=== PATIENT | female | born 1995 | race African-American/Black ===

== ENCOUNTER 2018-03-31 06:55 | Inpatient (IN) ==
[2018-03-31 07:56] LABS: Apearance,Urine Slightly Hazy (Clear); Bacteria,Urine Occasional /HPF (Few); Bilirubin,Urine Negative (Negative); Blood, Urine Negative (Negative); Glucose,Urine (UA) Negative (Negative); Ketones,Urine 5 mg/dL (Negative); Mucus,Urine Many /LPF (Occasional); Nitrite,Urine Negative (Negative); Protein,Urine 30 MG/DL; RBC,Urine 4 /HPF (0-4); Squamous Epithelial Cell,Urine Occasional /HPF (0-10); Urine Color Amber (Yellow); Urine Specific Gravity 1.031 (1.001-1.035); WBC,Urine 31 /HPF (0-6)
[2018-03-31 08:01] LABS: Barbiturates Screen,Urine Negative (Negative); Benzodiazepines Screen,Urine Negative (Negative); Cannabinoid Screen,Urine Positive (Negative); Opiate Screen,Urine Negative (Negative); Phencyclidine Screen,Urine Negative (Negative)
[2018-03-31] MEDS ORDERED: MEPERIDINE 50 MG/1 ML VIAL IV PRN (10:52)
[2018-03-31] MEDS ORDERED: ONDANSETRON 4 MG/2 ML VIAL IV PRN (10:52)
[2018-03-31] MEDS ORDERED: BUTORPHANOL 1 MG/ML VIAL IV PRN (10:52)
[2018-03-31] MEDS ORDERED: miSOPROStol 200 MCG TABLET VAG PRN (10:52)
[2018-03-31] MEDS ORDERED: LACTATED RINGERS 1,000 ML IV ONE (10:52)
[2018-03-31] MEDS ORDERED: TERBUTALINE 1 MG/1 ML VIAL SUBCUT PRN (10:52)
[2018-03-31] MEDS ORDERED: diphenhydrAMINE 50 MG/1 ML VIAL IV PRN ×2 (11:12)
[2018-03-31] MEDS ORDERED: NALOXONE 0.4 MG/ML VIAL IV PRN (11:12)
[2018-03-31] MEDS ORDERED: ePHEDrine 50 MG/ML AMP IV PRN (11:12)
[2018-03-31] MEDS ORDERED: hydrOXYzine HCL 25 MG/1 ML VIAL IM PRN (11:12)
[2018-03-31] MEDS ORDERED: FAMOTIDINE 20 MG/2 ML VIAL IV ONE (11:12)
[2018-03-31] MEDS ORDERED: PROMETHAZINE 25 MG/1 ML VIAL IM ONE (11:12)
[2018-03-31] MEDS ORDERED: CITRIC ACID/SODIUM CITRATE 30 ML UDCUP PO ONE (11:14)
[2018-03-31] MEDS: LACTATED RINGERS 1,000 ML IV SCH ×2 (11:25→12:43)
[2018-03-31] MEDS ORDERED: fentaNYL 2 MCG/ROPIV 0.2% EPID 100 ML EPIDURAL SCH (11:30)
[2018-03-31] MEDS ORDERED: AMPICILLIN INJ 2,000 MG in SODIUM CHLORIDE 0.9% 100 ML IV ONE (11:30)
[2018-03-31 11:33] LABS: Basophils # 0.1 10*3/uL (0.0-0.2); Basophils % 0.4 % (0.0-0.8); Eosinophils # 0.1 10*3/uL (0.0-0.87); Eosinophils % 0.4 % (0.00-10.9); Hematocrit 31.1 VOL% (35.7-47.0); Hemoglobin 10.6 GM/DL (12.0-16.0); Immature Granulocytes % 0.7 %; Immature Granulocytes Absolute 0.08 #; Lymphocytes # 1.9 10*3/uL (1.4-4.0); Lymphocytes % 16.9 % (21.3-54.2); Mean Corpuscular HGB Conc 34.1 GM/DL (32-36); Mean Corpuscular Hemoglobin 31 PG (27-34); Mean Corpuscular Volume 90.1 FL (87-102); Mean Platelet Volume 9.6 FL (9.6-12.0); Monocytes # 0.8 10*3/uL (0.11-0.8); Monocytes % 6.6 % (1.7-12.7); Neutrophils # 8.5 10*3/uL (1.4-7.4); Platelet Count 223 T/CUMM (130-400); Red Blood Count 3.45 MC/CUMM (3.8-5.5); Red Cell Distribution Width 12.7 % (9.3-17.3); White Blood Count 11.3 T/CUMM (4-12)
[2018-03-31] MEDS: OXYTOCIN/LR 20 UNIT/1,000 ML BAG IV SCH ×2 (11:45→20:55)
[2018-03-31 11:53] LABS: Albumin 2.9 G/DL (3.4-5.0); Bilirubin,Total 0.4 MG/DL (0.2-1.0); Calcium 8.6 MG/DL (8.5-10.1); Osmolality,Calculated 272.8 MOS/KG (273-304); Potassium 3.4 MMOL/L (3.5-5.1); Total Protein 6.9 G/DL (6.4-8.3); Uric Acid 4.5 MG/DL (2.6-6.0)
[2018-03-31] MEDS ORDERED: NITROFURANTOIN MACRO/MONO 100 MG CAPSULE PO SCH (12:00)
[2018-03-31 14:38] LABS: Apearance,Urine Slightly Hazy (Clear); Bacteria,Urine Occasional /HPF (Few); Blood, Urine Negative (Negative); Glucose,Urine (UA) 50 mg/dL (Negative); Ketones,Urine 5 mg/dL (Negative); Mucus,Urine Many /LPF (Occasional); Nitrite,Urine Negative (Negative); Protein,Urine 30 MG/DL; RBC,Urine 5 /HPF (0-4); Squamous Epithelial Cell,Urine Occasional /HPF (0-10); Urine Color Amber (Yellow); Urine Specific Gravity 1.043 (1.001-1.035); WBC,Urine 20 /HPF (0-6)
[2018-03-31 14:39] LABS: Bilirubin,Urine Small mg/dL (Negative)
[2018-03-31] MEDS ORDERED: ACETAMINOPHEN 500 MG TABLET PO ONE (15:24)
[2018-03-31] MEDS ORDERED: AMPICILLIN INJ 1,000 MG in SODIUM CHLORIDE 0.9% 100 ML IV SCH (15:45)
[2018-03-31] MEDS ORDERED: CARBOPROST TROMETHAMINE 250 MCG/ML AMP IM ONE (16:40)
[2018-03-31] MEDS ORDERED: METHYLERGONOVINE 0.2 MG/1 ML AMP ONE (16:40)
[2018-03-31 17:11] LABS: Cord Arterial Blood HCO3 25.9 MMOL/L
[2018-03-31 17:15] LABS: Cord Venous Blood HCO3 25.6 MMOL/L; Cord Venous Blood PCO2 46.7 MMHG; Cord Venous Blood PO2 35.6
[2018-03-31] MEDS ORDERED: MAGNESIUM HYDROXIDE SUSP 30 ML UDCUP PO PRN (17:18)
[2018-03-31] MEDS ORDERED: BISACODYL 10 MG SUPP RECTAL PRN (17:18)
[2018-03-31] MEDS ORDERED: LACTATED RINGERS 1,000 ML IV SCH (17:30)
[2018-03-31] MEDS: ACETAMINOPHEN 325 MG TABLET PO PRN (19:52)
[2018-03-31] MEDS ORDERED: OXYTOCIN/LR 20 UNIT/1,000 ML BAG IV ONE (20:50)
[2018-03-31] MEDS: IBUPROFEN 800 MG TABLET PO PRN (23:49)
[2018-04-01] MEDS: ACETAMINOPHEN 325 MG TABLET PO PRN ×3 (04:39→19:22)
[2018-04-01 05:51] LABS: Basophils % 0.3 % (0.0-0.8); Eosinophils # 0.1 10*3/uL (0.0-0.87); Eosinophils % 0.9 % (0.00-10.9); Hematocrit 28.8 VOL% (35.7-47.0); Hemoglobin 9.5 GM/DL (12.0-16.0); Immature Granulocytes % 0.7 %; Immature Granulocytes Absolute 0.09 #; Lymphocytes # 2.4 10*3/uL (1.4-4.0); Lymphocytes % 19.2 % (21.3-54.2); Mean Corpuscular Hemoglobin 30 PG (27-34); Mean Corpuscular Volume 91.7 FL (87-102); Mean Platelet Volume 10.1 FL (9.6-12.0); Monocytes # 0.9 10*3/uL (0.11-0.8); Monocytes % 7.4 % (1.7-12.7); Neutrophils # 9.1 10*3/uL (1.4-7.4); Neutrophils % 71.5 % (38.7-73.9); Platelet Count 188 T/CUMM (130-400); Red Blood Count 3.14 MC/CUMM (3.8-5.5); Red Cell Distribution Width 12.6 % (9.3-17.3); White Blood Count 12.7 T/CUMM (4-12)
[2018-04-01] MEDS: IBUPROFEN 800 MG TABLET PO PRN ×2 (07:20→15:52)
[2018-04-01] MEDS: DOCUSATE SODIUM 100 MG CAPSULE PO SCH ×3 (07:20→21:21)
[2018-04-01] MEDS: MULTIVITAMIN (PRENATAL) TABLET PO SCH (07:20)
[2018-04-01] MEDS: NITROFURANTOIN MACRO/MONO 100 MG CAPSULE PO SCH ×2 (09:53→21:21)
[2018-04-01] MEDS ORDERED: ONDANSETRON 4 MG TABLET PO PRN (10:47)
[2018-04-01] MEDS ORDERED: ONDANSETRON 4 MG/2 ML VIAL IV PRN (10:49)
[2018-04-01] MEDS ORDERED: ONDANSETRON 4 MG/2 ML VIAL ONE (10:51)
[2018-04-02 07:05] VITALS: BP 136/84
[2018-04-02] MEDS: NITROFURANTOIN MACRO/MONO 100 MG CAPSULE PO SCH (08:03)
[2018-04-02] MEDS: MULTIVITAMIN (PRENATAL) TABLET PO SCH (08:07)
[2018-04-02] MEDS: IBUPROFEN 800 MG TABLET PO PRN (08:07)
[2018-04-02] MEDS: DOCUSATE SODIUM 100 MG CAPSULE PO SCH (08:07)
[2018-04-02] MEDS ORDERED: INFLUENZA VIRUS VACCINE 0.5 ML SYRINGE IM ONE (09:00)
[2018-04-02] MEDS ORDERED: DIPH/TET/ACEL PERT BOOSTER VACCINE 0.5 ML VIAL IM ONE (11:10)
== END 2018-04-02 13:00 | disposition home or self-care (01) | DRG 806 ==
LOC: N.LDOUT 06:55 → N.LD 06:58 → N.OB 04-01 19:21
PROVIDERS: ADMIT Obstetrics & Gynecology; ATTEND Obstetrics & Gynecology